=== PATIENT | male | born 1960 | race Two or more races ===

== ENCOUNTER 2021-11-04 10:45 | Outpatient (CLI) | payer OTHER | END 2021-11-04 10:46 | disposition home or self-care (01) | LOC: NUCLEAR 10:45 | PROVIDERS: ATTEND Specialist | DX: I83.813 Varicose veins of bilateral lower extremities with pain (principal); B35.3 Tinea pedis ==

== ENCOUNTER 2023-03-08 09:58 | Outpatient (CLI) | payer OTHER | END 2023-03-08 10:06 | disposition home or self-care (01) | LOC: RAD 09:58 | DX: I51.7 Cardiomegaly (principal) ==

== ENCOUNTER 2023-10-14 09:15 | Outpatient (CLI) | payer OTHER ==
[2023-10-14 09:58] LABS: HEMATOCRIT 41.9 % (39.0-48.0); HEMOGLOBIN 14.5 g/dL (13-16.00); MEAN CELL VOLUME 91.2 fL (80.0-100.00); MEAN CORPUSCULAR HEMOGLOBIN 31.4 pg (27.00-32.0); MEAN CORPUSCULAR HGB CONC 34.5 g/dl (32.0-36.0); PLATELET COUNT 144 K/uL (150-450); RED CELL DISTRIBUTION WIDTH 14.4 % (11.5-14.5)
[2023-10-14 10:06] LABS: PH,URINE 5.5 (5.0-8.0); URINE APPEARANCE Clear; URINE BILIRRUBIN Negative (NEGATIVE); URINE BLOOD Negative; URINE COLOR Yellow; URINE GLUCOSE Negative (NEGATIVE); URINE LEUKOCYTE Negative; URINE NITRATE Negative; URINE PROTEIN Negative (NEGATIVE); URINE UROBILINOGEN 0.2 E.U./dl
[2023-10-14 10:10] LABS: URINE BACTERIA 28.9 uL (0.0-1933); URINE EPITHELIAL CELLS 1.6 uL (0.0-38.8); URINE WBC 3.2 uL (0.0-23.2)
[2023-10-14 11:17] LABS: BILIRUBIN TOTAL 0.95 mg/dL (0.3-1.2); CALCIUM 9.2 mg/dL (8.5-10.1); CHOL HDL RATIO 4.1 (0-5.0); CREATININE SERUM 0.76 mg/dL (0.70-1.30); GFR 102.93; GLOBULINA 3.7 G/DL (2.4-3.5); POTASSIUM 4.45 mEq/L (3.5-5.1); PROSTATIC SPECIFIC ANTIGEN 3.02 NG/ML (0.010-4.00); TOTAL PROTEIN 7.7 gm/dL (6.4-8.2); TSH 2.7 uIU/mL (0.358-3.74)
[2023-10-15 09:10] LABS: LEUTEINIZING HORMONE 10.4 mIU/mL (1.7-8.6); PROLACTIN 11.9 ng/mL (3.6-25.2)
[2023-10-18 19:10] LABS: test free 2.1 pg/mL (6.6-18.1)
== END 2023-10-14 09:16 | disposition home or self-care (01) ==
LOC: LAB 09:15
DX: E78.5 Hyperlipidemia, unspecified (principal); Z12.5 Encounter for screening for malignant neoplasm of prostate; Z12.11 Encounter for screening for malignant neoplasm of colon; R97.20 Elevated prostate specific antigen [PSA]; N40.1 Benign prostatic hyperplasia with lower urinary tract symptoms; N52.9 Male erectile dysfunction, unspecified

== ENCOUNTER 2023-10-19 14:03 | Outpatient (CLI) | payer OTHER ==
[2023-10-19 14:41] LABS: ob POSITIVE (NEGATIVE)
== END 2023-10-19 14:21 | disposition home or self-care (01) ==
LOC: LAB 14:03
DX: E78.5 Hyperlipidemia, unspecified (principal); Z12.5 Encounter for screening for malignant neoplasm of prostate; Z12.11 Encounter for screening for malignant neoplasm of colon